=== PATIENT | female | born 1960 | race Two or more races ===

== ENCOUNTER 2016-10-17 14:02 | Emergency (ER) | payer MEDICAID ==
[~2016-10-17] VITALS: Ht 167.6 cm; Wt 42.9 kg
[2016-10-17] MEDS ORDERED: DIPH,PERTUSS(ACELL),TET VAC/PF 0.5 ML IM-VACC ONE ×2 (14:30→14:54)
[2016-10-17 16:09] VITALS: BP 139/96
== END 2016-10-17 16:52 | disposition home or self-care (01) ==
LOC: ED 16:30
DX: S60.222A Contusion of left hand, initial encounter (principal); D72.829 Elevated white blood cell count, unspecified; J44.9 Chronic obstructive pulmonary disease, unspecified; X58.XXXA Exposure to other specified factors, initial encounter; Y93.89 Activity, other specified; Y92.89 Other specified places as the place of occurrence of the external cause; Y99.9 Unspecified external cause status
CPT/HCPCS: 29125; 36415; 85025; 90471; 90715